=== PATIENT | female | born 1980 | race Caucasian/White ===

== ENCOUNTER 2022-12-16 13:23 | Emergency (ER) | payer OTHER, SELFPAY ==
[2022-12-16 13:36] VITALS: BP 131/97; PULSE 81; RESP 16; TEMP 37; O2SAT 100
--- NOTE | 2022-12-16 13:42 | ED.SKABFB ---
HPI - Skin/Abscess/Foreign Bdy General Chief complaint: Skin/Abscess/Foreign Body Stated complaint: Rash On Right Leg Time Seen by Provider: 12/16/22 13:42 Source: patient Mode of arrival: ambulatory Limitations: no limitations History of Present Illness HPI narrative: 42-year-old female presents with complaint of poison darlene for 4-5 days. Reports worse to right leg, started weeping today. Patient using calamine lotion without relief of symptoms. States she was exposed to poison darlene while working In her garden. Patient concerned that weeping from rash meant infection . All systems reviewed and negative except as noted above. Related Data Home Medications Medication Instructions Recorded Confirmed etonogestrel 0.12 mg-ethinyl 1 vag ring vaginal DIRECTED 12/16/22 12/16/22 estradiol 0.015 mg/24 hr vaginal ring (Alejandrang) loratadine 10 mg tablet 10 mg PO DAILY 12/16/22 12/16/22 Allergies Allergy/AdvReac Type Severity Reaction Status Date / Time acetaminophen [From Percocet] Allergy Other Verified 12/16/22 13:48 meperidine [From Demerol] Allergy Other Verified 12/16/22 13:48 oxycodone [From Percocet] Allergy Other Verified 12/16/22 13:48 Review of Systems Review of Systems: CONSTITUTIONAL: Denies fever, chills, or sweats. EYES: Denies visual changes, redness, or discharge. ENT: Denies rhinorrhea, congestion, sore throat, or otalgia. CARDIOVASCULAR: Denies chest pain, palpitations, or edema. RESPIRATORY: Denies cough or dyspnea. GASTROINTESTINAL: Denies abdominal pain, nausea, vomiting, or diarrhea. GENITOURINARY: Denies dysuria or hematuria. SKIN: Reports poison darlene rash to bilateral lower extremities. MUSCULOSKELETAL: Denies back pain, joint pain, or myalgia. NEUROLOGIC: Denies headache, numbness, or weakness. PSYCHIATRIC: Denies anxiety or depression. All other systems reviewed are negative, except as documented in HPI. PMFSH Comments At time of signature, agree with nursing past medical, surgical, social and family history. There is no relevant family history pertinent to the presenting complaint. Exam Narrative: GENERAL: This is a well-nourished, well-developed patient, in no apparent distress. HEAD: normocephalic, atraumatic. EYES: PERRL. Sclera clear/white. Vision is grossly intact. EARS: External ears normal NOSE: External nose normal NECK: Neck supple, non-tender without lymphadenopathy, masses or thyromegaly. CARDIOVASCULAR: Regular rate and rhythm without murmurs, gallops, or rubs. RESPIRATORY: Clear to auscultation. Breath sounds equal bilaterally. No wheezes, rales, or rhonchi. SKIN: warm, Dry, intact , good texture and turgor. Erythematous fascicular poison oak rash to bilateral lower extremities, worse to right leg. Area of poison eye rash weeping to right leg. No signs of infection. NEURO: awake, alert, and oriented to person, place and time. There were no obvious focal neurologic abnormalities. EXTREMITIES: No joint tenderness, effusion, or edema noted. Course Course Level of Care: Express Care Visit Vital Signs Vital signs: Vital Signs Temperature 37.0 C 12/16/22 13:36 Pulse Rate 81 12/16/22 13:36 Respiratory Rate 16 12/16/22 13:36 Blood Pressure 131/97 H 12/16/22 13:36 Pulse Oximetry 100 12/16/22 13:36 Oxygen Delivery Room Air 12/16/22 13:36 Temperature 37.0 C 12/16/22 13:36 Pulse Rate 81 12/16/22 13:36 Respiratory Rate 16 12/16/22 13:36 Blood Pressure 131/97 H 12/16/22 13:36 Pulse Oximetry 100 12/16/22 13:36 Oxygen Delivery Room Air 12/16/22 13:36 Reviewed MDM - Skin/Abscess/Foreign Bdy MDM Narrative Medical decision making narrative: Patient is aware of diagnosis, understands and agrees to treatment plan. Anticipatory guidance given. Patient agrees to follow-up as directed and is aware of reasons to seek care at the emergency department. Portions of this record may have been created with voice
== END 2022-12-16 13:53 | disposition home or self-care (01) ==
PROVIDERS: Emergency Provider Nurse Practitioner Family
DX: L25.5 Unspecified contact dermatitis due to plants, except food (principal)
CPT/HCPCS: 99213; G0463